=== PATIENT | female | born 1995 | race Hispanic/Latino ===

== ENCOUNTER 2021-11-08 15:28 | Emergency (ER) | payer OTHER ==
[2021-11-08 16:30] LABS: Bilirubin Neg (Negative); Blood, Urine Negative (Negative); Clarity Clear (Clear); Glucose, Urine (Dipstick) Normal (Negative); Ketone, Urine Negative (Negative); Leukocyte Negative (Negative); Nitrite Negative (Negative); Protein, Urine (Dipstick) Negative (Neg-Trace); Specific Gravity, Urine 1.005 (1.002-1.036); Urobilinogen Normal mg/dL (Less than 2)
[2021-11-08] MEDS ORDERED: cefTRIAXone\\ROCEPHIN 500 MG VIAL ONE (17:54)
[2021-11-08] MEDS ORDERED: Sterile Water 10 ML ONE (17:55)
[2021-11-09 11:51] LABS: Chlamydia by PCR Not Detected (NotDetected); GC by PCR Not Detected (NotDetected)
== END 2021-11-08 17:50 | disposition home or self-care (01) ==
LOC: CSHERS 15:28
DX: N76.0 Acute vaginitis (principal)
CPT/HCPCS: 81003; 87480; 87491; 87510; 87591; 87660; 96372; 99284; J0696